=== PATIENT | male | born 1985 | race Caucasian/White ===

== ENCOUNTER 2017-12-24 13:41 | Emergency (ER) | payer OTHER ==
[2017-12-24] MEDS: LIDOCAINE 2% MDV 20 ML VIAL SC (15:10)
== END 2017-12-24 16:04 | disposition home or self-care (01) ==
LOC: M ED 13:41
DX: S61.216A Laceration without foreign body of right little finger without damage to nail, initial encounter (principal); T23.252A Burn of second degree of left palm, initial encounter; W26.0XXA Contact with knife, initial encounter; Y92.511 Restaurant or cafe as the place of occurrence of the external cause; Y99.0 Civilian activity done for income or pay; F17.210 Nicotine dependence, cigarettes, uncomplicated
CPT/HCPCS: 12001

== ENCOUNTER 2021-06-26 18:44 | Inpatient (IN) | payer MEDICAID, OTHER ==
[~2021-06-26] VITALS: Ht 170.2 cm; Wt 175.0 kg
[2021-06-26] MEDS ORDERED: IPRATROPIUM 0.5MG/ALBUTEROL 2.5MG INH SOL UD 3ML (DUONEB) NEB PRN (19:45)
[2021-06-26] MEDS ORDERED: dexameTHASONE 4 MG/ML 1ML VIAL (J1100 PER 1MG) IV ONE ×2 (19:45→22:45)
[2021-06-26 20:13] LABS: BASO # 0.1 10^3/uL (0.0-0.2); BASO % 0.4 % (0.0-1.0); EOS # 0.3 10^3/uL (0.0-0.5); EOS % 2.2 % (0.0-3.0); HEMATOCRIT 53.1 % (42.0-52.0); HEMOGLOBIN 17.6 g/dl (13.5-17.5); LYMPH % 25.1 % (24.0-44.0); MEAN CORPUSCULAR HEMOGLOBIN 34.1 pg (27.0-33.0); MEAN CORPUSCULAR HGB CONC 33.1 g/dl (32.0-36.5); MEAN CORPUSCULAR VOLUME 102.9 fl (80.0-96.0); MONO # 1.1 10^3/uL (0.0-0.8); NEUTROPHILS # 7.6 10^3/uL (1.5-8.5); NEUTROPHILS % 62.7 % (36.0-66.0); PLATELET COUNT, AUTOMATED 284 10^3/uL (150-450); RED BLOOD COUNT 5.16 10^6/uL (4.30-6.10); WHITE BLOOD COUNT 12.1 10^3/uL (4.0-10.0)
[2021-06-26 20:40] LABS: ALBUMIN 3.1 GM/DL (3.2-5.2); ALT/SGPT 44 U/L (12-78); BILIRUBIN,DIRECT 0.1 MG/DL (0.0-0.2); BILIRUBIN,TOTAL 0.4 MG/DL (0.2-1.0); BLOOD UREA NITROGEN 9 MG/DL (7-18); CALCIUM LEVEL 9.2 MG/DL (8.5-10.1); CARBON DIOXIDE LEVEL 35 MEQ/L (21-32); CHLORIDE LEVEL 100 MEQ/L (98-107); CREATININE FOR GFR 0.65 MG/DL (0.70-1.30); GLOMERULAR FILTRATION RATE > 60.0 (>60); GLUCOSE, FASTING 103 MG/DL (70-100); NT-PRO BNP 374 PG/ML (<125); POTASSIUM SERUM 4.8 MEQ/L (3.5-5.1); SODIUM LEVEL 138 MEQ/L (136-145)
[2021-06-26 21:03] LABS: RSV AMPLIFICATION NEGATIVE (NEGATIVE)
[2021-06-26] MEDS ORDERED: ALBUTEROL SULFATE 2.5 MG/0.5 ML INH NEB SOLN INH PRN (21:45)
[2021-06-26] MEDS ORDERED: IPRATROPIUM 0.5MG/ALBUTEROL 2.5MG INH SOL UD 3ML (DUONEB) NEB ONE ×2 (21:45→22:45)
[2021-06-26] MEDS ORDERED: HOME MED LIST COMPLETE! XX SCH (22:45)
[2021-06-27] MEDS ORDERED: hydrALAZINE 20MG/ML 1ML VIAL (J0360 PER 20MG) IV PRN (00:20)
[2021-06-27] MEDS ORDERED: NS 1,000 ML IV SCH (00:25)
[2021-06-27] MEDS ORDERED: ALBUTEROL SULFATE 2.5 MG/0.5 ML INH NEB SOLN NEB PRN (00:25)
[2021-06-27] MEDS ORDERED: ACETAMINOPHEN TAB 650MG DOSE (2X325MG) PO PRN (00:25)
[2021-06-27] MEDS: DOXYCYCLINE HYCLATE 100MG TABLET PO SCH ×3 (00:40→21:25)
[2021-06-27] MEDS: IPRATROPIUM 0.5MG/ALBUTEROL 2.5MG INH SOL UD 3ML (DUONEB) NEB SCH ×4 (02:00→19:52)
[2021-06-27 02:30] VITALS: BP 148/83
[2021-06-27 05:29] VITALS: BP 158/104
[2021-06-27] MEDS: methylPREDNISolone 40MG 1ML VIAL IV SCH ×2 (06:07→12:12)
[2021-06-27] MEDS: HEPARIN SOD (PORCINE) 5000UNITS/ML 1ML VIAL/SYRINGE SC SCH ×3 (06:07→21:26)
[2021-06-27] MEDS: DOCUSATE SODIUM 100MG CAPSULE PO SCH ×2 (08:01→21:00)
[2021-06-27] MEDS: NICOTINE 21MG/24HR 1 EA TRANSDERMAL TD SCH (08:01)
[2021-06-27] MEDS: **hydrALAZINE** 10 MG TAB PO PRN ×2 (08:02→15:22)
[2021-06-27 08:16] LABS: HEMATOCRIT 54.2 % (42.0-52.0); HEMOGLOBIN 17.6 g/dl (13.5-17.5)
[2021-06-27 14:00] VITALS: BP 153/95
[2021-06-27] MEDS: FUROSEMIDE 20MG/2ML VIAL (J1940) IV SCH (17:59)
[2021-06-27] MEDS: methylPREDNISolone 125MG 2ML VIAL IV SCH (18:00)
[2021-06-27 22:00] VITALS: BP 157/93
[2021-06-28] MEDS: IPRATROPIUM 0.5MG/ALBUTEROL 2.5MG INH SOL UD 3ML (DUONEB) NEB SCH ×6 (00:51→23:17)
[2021-06-28] MEDS: methylPREDNISolone 125MG 2ML VIAL IV SCH ×5 (00:56→23:58)
[2021-06-28] MEDS: HEPARIN SOD (PORCINE) 5000UNITS/ML 1ML VIAL/SYRINGE SC SCH ×3 (05:18→20:42)
[2021-06-28 06:00] VITALS: BP 130/74
[2021-06-28 07:46] LABS: BLOOD UREA NITROGEN 14 MG/DL (7-18); CALCIUM LEVEL 9.4 MG/DL (8.5-10.1); CARBON DIOXIDE LEVEL 38 MEQ/L (21-32); CHLORIDE LEVEL 94 MEQ/L (98-107); GLOMERULAR FILTRATION RATE > 60.0 (>60); GLUCOSE, FASTING 185 MG/DL (70-100); POTASSIUM SERUM 5.1 MEQ/L (3.5-5.1); SODIUM LEVEL 136 MEQ/L (136-145)
[2021-06-28] MEDS: DOCUSATE SODIUM 100MG CAPSULE PO SCH ×2 (09:00→20:38)
[2021-06-28] MEDS ORDERED: CALCIUM GLUCONATE 1,000 MG in D5W MINI-BAG PLUS 100 ML IV ONE ×2 (09:00→20:00)
[2021-06-28] MEDS: OMEPRAZOLE 20MG CAP PO SCH (09:30)
[2021-06-28] MEDS: NICOTINE 21MG/24HR 1 EA TRANSDERMAL TD SCH (09:30)
[2021-06-28] MEDS: FUROSEMIDE 20MG/2ML VIAL (J1940) IV SCH (09:30)
[2021-06-28] MEDS: DOXYCYCLINE HYCLATE 100MG TABLET PO SCH ×2 (09:31→20:41)
[2021-06-28] MEDS ORDERED: IPRATROPIUM 0.5MG/ALBUTEROL 2.5MG INH SOL UD 3ML (DUONEB) NEB PRN (11:20)
[2021-06-28] MEDS ORDERED: ISOVUE-370 76% 100ML VIAL As Ordered ONE (11:56)
[2021-06-28] MEDS ORDERED: SOD POLYSTYRENE SULFONATE SUSP 15 GM/60 ML UD PO ONE ×2 (12:00→21:00)
[2021-06-28] MEDS ORDERED: GLUCAGON INJ 1MG VIAL SC PRN (13:00)
[2021-06-28] MEDS ORDERED: DEXTROSE 50% 50 ML SYRINGE IV PRN (13:00)
[2021-06-28] MEDS ORDERED: GLUCOSE 4GM CHEW TABLET PO PRN (13:00)
[2021-06-28] MEDS: BUDESONIDE 0.5 MG/2 ML INHALATION SUSPENSION INH SCH ×2 (13:04→19:08)
[2021-06-28] MEDS: HumaLOG INSULIN (NovoLOG) PER UNIT SC SCH ×3 (13:21→20:42)
[2021-06-28 14:00] VITALS: BP 144/82
[2021-06-28 14:53] LABS: BLOOD UREA NITROGEN 16 MG/DL (7-18); CALCIUM LEVEL 10.5 MG/DL (8.5-10.1); CARBON DIOXIDE LEVEL 35 MEQ/L (21-32); CHLORIDE LEVEL 93 MEQ/L (98-107); CREATININE FOR GFR 0.62 MG/DL (0.70-1.30); GLOMERULAR FILTRATION RATE > 60.0 (>60); GLUCOSE, FASTING 210 MG/DL (70-100); POTASSIUM SERUM 5.5 MEQ/L (3.5-5.1); SODIUM LEVEL 134 MEQ/L (136-145)
[2021-06-28 19:00] VITALS: BP 140/82
[2021-06-28] MEDS ORDERED: FUROSEMIDE 40MG/4ML VIAL (J1940) IV ONE (20:00)
[2021-06-29] MEDS ORDERED: FUROSEMIDE 40MG/4ML VIAL (J1940) IV ONE (02:00)
[2021-06-29] MEDS: IPRATROPIUM 0.5MG/ALBUTEROL 2.5MG INH SOL UD 3ML (DUONEB) NEB SCH ×6 (03:00→23:56)
[2021-06-29] MEDS: methylPREDNISolone 125MG 2ML VIAL IV SCH ×3 (05:29→18:22)
[2021-06-29] MEDS: HEPARIN SOD (PORCINE) 5000UNITS/ML 1ML VIAL/SYRINGE SC SCH ×3 (05:29→20:21)
[2021-06-29 06:00] VITALS: BP 141/82
[2021-06-29 06:51] LABS: BLOOD UREA NITROGEN 20 MG/DL (7-18); CALCIUM LEVEL 9.1 MG/DL (8.5-10.1); CARBON DIOXIDE LEVEL 41 MEQ/L (21-32); CHLORIDE LEVEL 90 MEQ/L (98-107); CREATININE FOR GFR 0.79 MG/DL (0.70-1.30); GLOMERULAR FILTRATION RATE > 60.0 (>60); GLUCOSE, FASTING 230 MG/DL (70-100); MAGNESIUM LEVEL 2.2 MG/DL (1.8-2.4); POTASSIUM SERUM 3.9 MEQ/L (3.5-5.1); SODIUM LEVEL 134 MEQ/L (136-145)
[2021-06-29] MEDS: BUDESONIDE 0.5 MG/2 ML INHALATION SUSPENSION INH SCH ×2 (07:37→17:53)
[2021-06-29] MEDS ORDERED: NICOTINE POLACRILEX 2 MG GUM PO PRN (08:25)
[2021-06-29] MEDS: DOXYCYCLINE HYCLATE 100MG TABLET PO SCH ×2 (08:52→20:23)
[2021-06-29] MEDS: FUROSEMIDE 40MG/4ML VIAL (J1940) IV SCH ×3 (08:52→20:22)
[2021-06-29] MEDS: OMEPRAZOLE 20MG CAP PO SCH (08:52)
[2021-06-29] MEDS: DOCUSATE SODIUM 100MG CAPSULE PO SCH ×2 (08:53→20:23)
[2021-06-29] MEDS: HumaLOG INSULIN (NovoLOG) PER UNIT SC SCH ×4 (08:53→20:22)
[2021-06-29] MEDS: NICOTINE 21MG/24HR 1 EA TRANSDERMAL TD SCH (08:54)
[2021-06-29] MEDS ORDERED: NICOTINE POLACRILEX 2 MG GUM PO ONE (09:00)
[2021-06-29 14:00] VITALS: BP 140/106
[2021-06-29 20:30] VITALS: BP 147/98
[2021-06-29 20:57] VITALS: BP 145/90
[2021-06-29 21:00] LABS: ABG BASE EXCESS 12.4 (-2.0-2.0); ABG O2 SATURATION 93.5 % (95.0-99.0); ABG PARTIAL PRESSURE CO2 59.9 mmHg (35.0-45.0); ABG PARTIAL PRESSURE O2 64.1 mmHg (75.0-100.0); ABG STANDARD HCO3 36.1 MEQ/L (22.0-26.0); ABG TOTAL CO2 41.9 MEQ/L (22.0-29.0); ABG pH (ARTERIAL) 7.443 UNITS (7.350-7.450)
[2021-06-29 23:41] LABS: BLOOD UREA NITROGEN 21 MG/DL (7-18); CALCIUM LEVEL 9.5 MG/DL (8.5-10.1); CARBON DIOXIDE LEVEL 42 MEQ/L (21-32); CHLORIDE LEVEL 90 MEQ/L (98-107); CREATININE FOR GFR 0.95 MG/DL (0.70-1.30); GLOMERULAR FILTRATION RATE > 60.0 (>60); GLUCOSE, FASTING 355 MG/DL (70-100); POTASSIUM SERUM 3.6 MEQ/L (3.5-5.1); SODIUM LEVEL 136 MEQ/L (136-145)
[2021-06-30] VITALS (8 sets, daily range): BP systolic 136–165; BP diastolic 76–96
[2021-06-30] MEDS: methylPREDNISolone 125MG 2ML VIAL IV SCH ×5 (00:01→23:01)
[2021-06-30] MEDS: FUROSEMIDE 40MG/4ML VIAL (J1940) IV SCH ×3 (00:02→08:11)
[2021-06-30] MEDS: IPRATROPIUM 0.5MG/ALBUTEROL 2.5MG INH SOL UD 3ML (DUONEB) NEB SCH ×5 (03:37→19:51)
[2021-06-30] MEDS: HEPARIN SOD (PORCINE) 5000UNITS/ML 1ML VIAL/SYRINGE SC SCH ×3 (05:28→21:18)
[2021-06-30 06:05] LABS: BLOOD UREA NITROGEN 24 MG/DL (7-18); CALCIUM LEVEL 9.2 MG/DL (8.5-10.1); CHLORIDE LEVEL 86 MEQ/L (98-107); CREATININE FOR GFR 0.96 MG/DL (0.70-1.30); GLOMERULAR FILTRATION RATE > 60.0 (>60); GLUCOSE, FASTING 233 MG/DL (70-100); SODIUM LEVEL 135 MEQ/L (136-145)
[2021-06-30 06:06] LABS: CARBON DIOXIDE LEVEL 47 MEQ/L (21-32); MAGNESIUM LEVEL 2.2 MG/DL (1.8-2.4); POTASSIUM SERUM 4.3 MEQ/L (3.5-5.1)
[2021-06-30] MEDS: BUDESONIDE 0.5 MG/2 ML INHALATION SUSPENSION INH SCH (07:22)
[2021-06-30] MEDS: HumaLOG INSULIN (NovoLOG) PER UNIT SC SCH ×4 (08:08→21:17)
[2021-06-30] MEDS: DOXYCYCLINE HYCLATE 100MG TABLET PO SCH ×2 (08:08→21:17)
[2021-06-30] MEDS: OMEPRAZOLE 20MG CAP PO SCH (08:08)
[2021-06-30] MEDS: NICOTINE 21MG/24HR 1 EA TRANSDERMAL TD SCH (08:08)
[2021-06-30] MEDS: DOCUSATE SODIUM 100MG CAPSULE PO SCH ×2 (08:08→21:00)
[2021-07-01] VITALS: BP 154/79
[2021-07-01] MEDS: IPRATROPIUM 0.5MG/ALBUTEROL 2.5MG INH SOL UD 3ML (DUONEB) NEB SCH ×6 (01:34→20:00)
[2021-07-01 04:00] VITALS: BP 162/95
[2021-07-01 05:11] LABS: BLOOD UREA NITROGEN 22 MG/DL (7-18); CALCIUM LEVEL 9.2 MG/DL (8.5-10.1); CARBON DIOXIDE LEVEL 41 MEQ/L (21-32); CHLORIDE LEVEL 91 MEQ/L (98-107); CREATININE FOR GFR 0.78 MG/DL (0.70-1.30); GLOMERULAR FILTRATION RATE > 60.0 (>60); GLUCOSE, FASTING 268 MG/DL (70-100); MAGNESIUM LEVEL 2.5 MG/DL (1.8-2.4); POTASSIUM SERUM 4.2 MEQ/L (3.5-5.1); SODIUM LEVEL 134 MEQ/L (136-145)
[2021-07-01] MEDS: HEPARIN SOD (PORCINE) 5000UNITS/ML 1ML VIAL/SYRINGE SC SCH ×3 (05:39→21:09)
[2021-07-01] MEDS: methylPREDNISolone 125MG 2ML VIAL IV SCH ×3 (05:39→17:52)
[2021-07-01] MEDS: HumaLOG INSULIN (NovoLOG) PER UNIT SC SCH ×4 (07:37→21:09)
[2021-07-01 08:00] VITALS: BP 162/81
[2021-07-01] MEDS: OMEPRAZOLE 20MG CAP PO SCH (08:34)
[2021-07-01] MEDS: DOCUSATE SODIUM 100MG CAPSULE PO SCH ×3 (08:34→21:08)
[2021-07-01] MEDS: DOXYCYCLINE HYCLATE 100MG TABLET PO SCH ×2 (08:34→21:08)
[2021-07-01] MEDS: NICOTINE 21MG/24HR 1 EA TRANSDERMAL TD SCH (08:34)
[2021-07-01] MEDS ORDERED: lisinopriL 5 MG TAB PO ONE (09:15)
[2021-07-01 09:42] VITALS: BP 150/89
[2021-07-01 16:00] VITALS: BP 141/85
[2021-07-01 16:50] VITALS: BP 135/90
[2021-07-02] MEDS: IPRATROPIUM 0.5MG/ALBUTEROL 2.5MG INH SOL UD 3ML (DUONEB) NEB SCH ×6 (00:07→19:32)
[2021-07-02] MEDS: methylPREDNISolone 125MG 2ML VIAL IV SCH ×2 (00:07→05:13)
[2021-07-02] MEDS: HEPARIN SOD (PORCINE) 5000UNITS/ML 1ML VIAL/SYRINGE SC SCH ×3 (05:13→21:05)
[2021-07-02 05:18] VITALS: BP 134/90
[2021-07-02 06:33] LABS: BLOOD UREA NITROGEN 26 MG/DL (7-18); CARBON DIOXIDE LEVEL 40 MEQ/L (21-32); CHLORIDE LEVEL 91 MEQ/L (98-107); CREATININE FOR GFR 0.93 MG/DL (0.70-1.30); GLOMERULAR FILTRATION RATE > 60.0 (>60); GLUCOSE, FASTING 298 MG/DL (70-100); MAGNESIUM LEVEL 2.6 MG/DL (1.8-2.4); POTASSIUM SERUM 4.3 MEQ/L (3.5-5.1); SODIUM LEVEL 133 MEQ/L (136-145)
[2021-07-02] MEDS: DOCUSATE SODIUM 100MG CAPSULE PO SCH ×2 (08:28→20:19)
[2021-07-02] MEDS: HumaLOG INSULIN (NovoLOG) PER UNIT SC SCH ×4 (08:35→20:20)
[2021-07-02] MEDS: DOXYCYCLINE HYCLATE 100MG TABLET PO SCH ×2 (08:35→20:19)
[2021-07-02] MEDS: OMEPRAZOLE 20MG CAP PO SCH (08:35)
[2021-07-02] MEDS: lisinopriL 5 MG TAB PO SCH (08:36)
[2021-07-02] MEDS: NICOTINE 21MG/24HR 1 EA TRANSDERMAL TD SCH (08:37)
[2021-07-02] MEDS: predniSONE 20 MG TAB PO SCH (12:04)
[2021-07-02 14:00] VITALS: BP 136/57
[2021-07-02] MEDS ORDERED: LEVEMIR (INSULIN DETEMIR) 1 UNITS/0.01ML SC ONE (16:55)
[2021-07-02] MEDS ORDERED: HumaLOG INSULIN (NovoLOG) PER UNIT SC STA (18:37)
[2021-07-02 19:23] LABS: HEMOGLOBIN A1c 6.6 %
[2021-07-02 19:50] LABS: BLOOD UREA NITROGEN 24 MG/DL (7-18); CALCIUM LEVEL 9.2 MG/DL (8.5-10.1); CARBON DIOXIDE LEVEL 33 MEQ/L (21-32); CHLORIDE LEVEL 92 MEQ/L (98-107); CREATININE FOR GFR 0.88 MG/DL (0.70-1.30); GLOMERULAR FILTRATION RATE > 60.0 (>60); GLUCOSE, FASTING 496 MG/DL (70-100); POTASSIUM SERUM 4.5 MEQ/L (3.5-5.1); SODIUM LEVEL 133 MEQ/L (136-145)
[2021-07-02 19:51] VITALS: BP 119/70
[2021-07-02] MEDS ORDERED: HumaLOG INSULIN (NovoLOG) PER UNIT SC ONE (20:00)
[2021-07-02 23:35] LABS: BLOOD UREA NITROGEN 21 MG/DL (7-18); CARBON DIOXIDE LEVEL 37 MEQ/L (21-32); CHLORIDE LEVEL 97 MEQ/L (98-107); CREATININE FOR GFR 0.88 MG/DL (0.70-1.30); GLOMERULAR FILTRATION RATE > 60.0 (>60); GLUCOSE, FASTING 168 MG/DL (70-100); POTASSIUM SERUM 3.8 MEQ/L (3.5-5.1); SODIUM LEVEL 136 MEQ/L (136-145)
[2021-07-03] MEDS: IPRATROPIUM 0.5MG/ALBUTEROL 2.5MG INH SOL UD 3ML (DUONEB) NEB SCH ×5 (00:18→15:58)
[2021-07-03] MEDS: HEPARIN SOD (PORCINE) 5000UNITS/ML 1ML VIAL/SYRINGE SC SCH (05:26)
[2021-07-03 06:00] VITALS: BP 130/68
[2021-07-03 06:36] LABS: BLOOD UREA NITROGEN 22 MG/DL (7-18); CALCIUM LEVEL 9.1 MG/DL (8.5-10.1); CARBON DIOXIDE LEVEL 35 MEQ/L (21-32); CHLORIDE LEVEL 96 MEQ/L (98-107); CREATININE FOR GFR 0.62 MG/DL (0.70-1.30); GLOMERULAR FILTRATION RATE > 60.0 (>60); GLUCOSE, FASTING 127 MG/DL (70-100); MAGNESIUM LEVEL 2.4 MG/DL (1.8-2.4); SODIUM LEVEL 138 MEQ/L (136-145)
[2021-07-03 07:57] VITALS: BP 130/68
[2021-07-03] MEDS: OMEPRAZOLE 20MG CAP PO SCH (07:57)
[2021-07-03] MEDS: DOXYCYCLINE HYCLATE 100MG TABLET PO SCH (07:57)
[2021-07-03] MEDS: HumaLOG INSULIN (NovoLOG) PER UNIT SC SCH ×2 (07:57→12:11)
[2021-07-03] MEDS: lisinopriL 5 MG TAB PO SCH (07:57)
[2021-07-03] MEDS: predniSONE 20 MG TAB PO SCH (07:58)
[2021-07-03] MEDS: DOCUSATE SODIUM 100MG CAPSULE PO SCH ×2 (07:58→09:00)
[2021-07-03] MEDS: NICOTINE 21MG/24HR 1 EA TRANSDERMAL TD SCH (08:00)
[2021-07-03] MEDS ORDERED: metFORMIN (GLUCOPHAGE) 500MG TAB PO SCH (08:00)
[2021-07-03] MEDS ORDERED: NICO21PAT TD (08:12)
[2021-07-03] MEDS ORDERED: NICO2GUM PO (08:12)
[2021-07-03] MEDS ORDERED: DOXY100T PO (08:12)
[2021-07-03] MEDS ORDERED: LISI5TAB11 PO (08:12)
[2021-07-03] MEDS ORDERED: OMEP-173 PO (08:12)
[2021-07-03] MEDS ORDERED: [UNRECOGNIZED DRUG - CODE] XX (08:15)
[2021-07-03] MEDS ORDERED: METF500T13 PO (08:15)
[2021-07-03] MEDS ORDERED: SING10TA32 PO (08:17)
[2021-07-03] MEDS ORDERED: NEBU1EAC71 MC (08:17)
[2021-07-03] MEDS ORDERED: ALBU83IN NEB (08:17)
[2021-07-03] MEDS ORDERED: PRED10TA2 PO (08:17)
[2021-07-03] MEDS ORDERED: PROAAER10 INH (08:17)
[2021-07-03] MEDS ORDERED: PRED20TA PO (08:17)
[2021-07-03] MEDS ORDERED: ALCO1MED31 TP (08:27)
[2021-07-03] MEDS ORDERED: LANC30MI TOP (08:27)
[2021-07-03] MEDS ORDERED: PHAR1TES VI (08:27)
[2021-07-03 14:00] VITALS: BP 127/64
== END 2021-07-03 15:30 | disposition home health service (06) | DRG 199 ==
LOC: M ED 18:44 → M ED INP 23:50 → ENRESERV 06-27 01:04 → M MSPAV 06-27 02:31 → M ICU 06-29 20:50 → M MSPAV 07-01 16:37
PROVIDERS: ADMIT Internal Medicine; ATTEND General Practice
DX: I16.0 Hypertensive urgency (principal); J96.01 Acute respiratory failure with hypoxia; I27.20 Pulmonary hypertension, unspecified; J45.901 Unspecified asthma with (acute) exacerbation; E11.65 Type 2 diabetes mellitus with hyperglycemia; D75.1 Secondary polycythemia; Z68.44 Body mass index [BMI] 60.0-69.9, adult; E66.01 Morbid (severe) obesity due to excess calories; G47.33 Obstructive sleep apnea (adult) (pediatric); J44.9 Chronic obstructive pulmonary disease, unspecified; F17.210 Nicotine dependence, cigarettes, uncomplicated; Z91.19 Patient's noncompliance with other medical treatment and regimen; Z79.899 Other long term (current) drug therapy; I10 Essential (primary) hypertension

== ENCOUNTER → 2022-06-12 | Outpatient (REF) ==
[~2022-06-12] MED LIST: ALBU2.5V10 NEB; ALCO1MED31 TP; DOXY100T PO; LANC30MI TOP; LISI5TAB11 PO; METF500T13 PO; MONT-5 PO; NEBU1EAC71 MC; NICO21PAT TD; NICO2GUM PO; OMEP-173 PO; PHAR1TES VI; PRED10TA2 PO; PRED20TA PO; PROAAER10 INH; [UNRECOGNIZED DRUG - CODE] XX
== END ==
LOC: M LAB 09:12